=== PATIENT | female | born 2000 | race Hispanic/Latino ===

== ENCOUNTER 2020-10-29 17:19 | Emergency (ER) | payer OTHER ==
[2020-10-29] MEDS ORDERED: METHYLPREDNISOLONE SOD SUCC 40MG/ML 1ML ONE (17:41)
[2020-10-29] MEDS ORDERED: SODIUM CHLORIDE 0.9% 500ML 500 ML IV ONE (17:52)
== END 2020-10-29 19:20 | disposition home or self-care (01) ==
LOC: EDH 17:19
DX: T78.49XA Other allergy, initial encounter (principal); R42 Dizziness and giddiness; R06.02 Shortness of breath; Z91.013 Allergy to seafood; X58.XXXA Exposure to other specified factors, initial encounter
CPT/HCPCS: 81025; 96361; 96374; 99283; J2920; J7040